=== PATIENT | female | born 1975 | race Hispanic/Latino ===

== ENCOUNTER 2018-06-01 09:28 | Outpatient (CLI) | payer OTHER ==
--- NOTE | 2018-06-01 11:59 | ULT ---
ABDOMINAL ULTRASOUND: HISTORY: Abdominal pain. COMPARISON: None. TECHNIQUE: Utilizing a Multi-Hertz transducer, sonographic imaging of the abdomen is performed in the longitudin al and transverse plane. FINDINGS: The head of the pancreas has a normal echotexture. The the pancreas is obscured by bowel gas . The visualized IVC and aorta are unremarkable. Increased echogenic liver may be due to hepatic steatosis or hepatocellular disease. Subsequent eval uation of hepatic masses and intrahepatic biliary dilatation is limited. The contour of the hepatic margin is maintained. The right hepatic lobe measures 14.8 cm. The main portal vein is patent. Appropriate directional flow. Limited evaluation of the common bile duct. common bile duct is 0.2 cm in diameter. There is sonographic evidence of cholelithiasis without evidence of gallbladder wall thickening or pe richolecystic fluid. Negative Albert sign. The kidneys have normal cortical echotexture. No hydronephrosis. The right kidney measures 4.7 x 5. 1 x 11.1 cm. The left kidney measures 12.2 x 6.1 x 5 cm. The spleen has a normal echotexture, measu ring 11.1 cm. IMPRESSION: 1. Sonographic evidence of cholelithiasis without evidence of cholecystitis. 2. Increased echogenicity of the liver, which may be due to hepatic steatosis or hepatocellular dise ase. POS: ORTEGA
== END 2018-06-01 09:29 | disposition home or self-care (01) ==
LOC: ULT 09:28
PROVIDERS: ATTEND Family Medicine
DX: R10.9 Unspecified abdominal pain (principal); K80.20 Calculus of gallbladder without cholecystitis without obstruction; R93.2 Abnormal findings on diagnostic imaging of liver and biliary tract
CPT/HCPCS: 76700

== ENCOUNTER 2019-04-04 04:23 | Observation (INO) | payer SELFPAY ==
[2019-04-04 04:56] LABS: #Eosinphils 0.1 thou/uL (0.0-0.7); #Lymphocytes 1.2 thou/uL (1.20-3.40); #Monocytes 0.3 thou/uL (0.11-0.59); #Neutrophils 3.9 thou/uL (1.40-6.50); %Basophils 0.4 % (0.0-1.0); %Eosinophils 2.3 % (0.0-10.0); %Lymphocytes 21.5 % (21.0-51.0); %Monocytes 5.9 % (0.0-10.0); %Neutrophils 69.8 % (42.0-75.0); Hemoglobin 14.2 g/dL (12.0-16.0); Mean Corpuscular HGB CONC 34.9 g/dL (32.0-36.0); Mean Corpuscular Hemoglobin 31.6 pg (27.0-31.0); Mean Corpuscular Volume 90.4 fL (78.0-98.0); Platelet Count 241 thou/uL (130-400); RBC Distribution Width 11.8 % (11.5-14.5); White Blood Cell (WBC) Count 5.6 thou/uL (4.8-10.8)
[2019-04-04 05:11] LABS: BHCG - Serum Negative (NEGATIVE); Pregs Control Background? CLEAR/WHITE (CLR/WHITE); Pregs Control Bar Appear? YES (CONTROL BAR)
[2019-04-04 05:15] LABS: ALT (SGPT) 752 U/L (8-55); AST (SGOT) 957 U/L (5-34); Albumin 4.4 g/dL (3.5-5.0); Alkaline Phosphatase 187 U/L (40-150); Anion Gap 11 mmol/L (10-20); BUN (Urea Nitrogen) 9 mg/dL (7.0-18.7); Bilirubin, Total 1.9 mg/dL (0.2-1.2); Calc. Creatinine Clearance 0 mL/min (70-130); Calcium 9.8 mg/dL (7.8-10.44); Carbon Dioxide 29 mmol/L (22-29); Chloride 101 mmol/L (98-107); Estimated GFR-MDRD Greater than 90; Globulin 3.5 g/dL (2.4-3.5); Glucose 118 mg/dL (70-105); Lipase 26 U/L (8-78); Protein, Total 7.9 g/dL (6.0-8.3); Sodium 137 mmol/L (136-145)
[2019-04-04] MEDS ORDERED: Piperacillin/Tazobactam 4.5 GM VIAL ONE (05:39)
[2019-04-04] MEDS ORDERED: Ondansetron PF 4 MG/2 ML Vial ONE ×2 (05:39→11:26)
[2019-04-04] MEDS ORDERED: Morphine 4 MG/ML VIAL ONE (05:39)
[2019-04-04 05:55] LABS: Bilirubin Negative (Negative); Blood, Urine Negative (Negative); Clarity Clear (Clear); Glucose, Urine (Dipstick) Normal (Negative); Leukocyte Negative Leu/uL (Negative); Nitrite Negative (Negative); Protein, Urine (Dipstick) Negative (Neg-Trace); Urobilinogen Normal mg/dL (Less than 2)
[2019-04-04] MEDS ORDERED: hydrALAZINE 20 MG/ML VIAL SLOW IVP PRN (07:29)
[2019-04-04] MEDS ORDERED: Ondansetron PF 4 MG/2 ML Vial IVP PRN (07:29)
[2019-04-04] MEDS ORDERED: Morphine 4 MG/ML VIAL SLOW IVP PRN (07:29)
[2019-04-04] MEDS ORDERED: Morphine 2 MG/ML SYRINGE SLOW IVP PRN (07:29)
[2019-04-04] MEDS ORDERED: Acetaminophen 1,000 MG in Premix Bag 1 BAG IVPB PRN (07:32)
--- NOTE | 2019-04-04 08:25 | HP ---
HISTORY OF PRESENT ILLNESS: Marian Pitts, 43-year-old female, [place], works at [email or web address], 3, para 3, has been having biliary symptoms for the past year. This has consisted of epigastric right upper quadrant pain, back and radiation nausea. This event was especially severe and she presents to the emergency room. She is noted to have a bilirubin of 1.9, AST and ALT 957 and 752 respectively, alkaline phosphatase 187, lipase 26. test negative. CBC and basic met are essentially normal with a white count of 5.6, hemoglobin of 14. IMAGING: Ultrasound of the gallbladder reveals a 4 mm bile duct. She is tender on an exam, but feels somewhat better since admission. She has received Zosyn and saline. ALLERGIES: NONE. TOBACCO: None. ALCOHOL: Socially. MEDICATIONS: She takes gout medications as needed. PAST SURGICAL HISTORY: Noncontributory. PAST MEDICAL HISTORY: Noncontributory. PHYSICAL EXAMINATION: VITAL SIGNS: Heart rate 60, blood pressure 120/69, respiratory rate 18. HEAD, EARS, EYES, NOSE AND THROAT: Unremarkable. Sclerae nonicteric. LUNGS: Clear to auscultation. CARDIAC: Regular rate and rhythm. No murmur or gallop. ABDOMEN: Soft. Mild tenderness in right upper quadrant with mild guarding. No peritoneal signs. Remainder of the abdomen is soft. SKIN: Nonjaundiced. NEUROLOGICAL: Intact no focal deficit. EXTREMITIES: Without edema. Good palpable pulses in all extremities. LABORATORY DATA: As noted above. Ultrasound results as noted above. ASSESSMENT: Cholecystitis, cholelithiasis. We would recommend laparoscopic video cholecystectomy and cholangiograms. It is unlikely that she has choledocholithiasis with a 4 mm bile duct, and more likely her bilirubin elevation is due to cholecystitis. PLAN: Continue intravenous antibiotics. Plan laparoscopic cholecystectomy today, if the OR schedule permits. Discharge home postoperatively, pending operative findings and cholangiogram results. Risks of infection, bleeding, visceral and biliary injury explained, she consents. Risks of blood transfusions were discussed, questions. Job ID: [id number]
[2019-04-04 09:30] VITALS: BMI 27.3
--- NOTE | 2019-04-04 09:38 | ULT ---
RIGHT UPPER QUADRANT ULTRASOUND: Date: 04/04/19 HISTORY: Epigastric abdominal pain and right upper quadrant abdominal pain for 3 days with nausea and constipa tion. FINDINGS: Overlying bowel gas limits evaluation of the pancreas. There is fatty infiltration of the liver. There are multiple intraluminal gallstones. There is mild g allbladder wall thickening measuring 3.8 mm. There is positive sonographic Albert's sign. Common bile duct measures 4 mm. The right kidney measures 11.9 x 4.2 x 4.5 cm. No focal renal lesion or hydronephrosis evident. IMPRESSION: 1. Cholelithiasis, gallbladder wall thickening, and positive sonographic Albert's sign is suspicious sonographically for acute calculus cholecystitis. 2. Fatty liver. POS: BH
[2019-04-04] MEDS ORDERED: Scopolamine 1.5 mg/72 hour Patch TD SCH (10:00)
[2019-04-04] MEDS ORDERED: Ketorolac Tromethamine 30 MG/ML VIAL IVP SCH (10:15)
[2019-04-04] MEDS ORDERED: Acetaminophen 1,000 MG in Premix Bag 1 BAG IVPB SCH (10:15)
[2019-04-04] MEDS: Piperacillin/Tazobactam 3.375 GM in Sodium Chloride 0.9% 100 ML IVPB SCH ×3 (11:17→23:42)
[2019-04-04] MEDS: Sodium Chloride 0.9% 1,000 ML IV SCH ×2 (11:22→17:13)
[2019-04-04] MEDS ORDERED: Glycopyrrolate 0.2 MG/ML 5 ML SYRINGE ONE (11:26)
[2019-04-04] MEDS ORDERED: PROPOFOL 200 MG/20 ML VIAL ONE (11:26)
[2019-04-04] MEDS ORDERED: Lidocaine 1% PF 5 ML VIAL ONE (11:26)
[2019-04-04] MEDS ORDERED: Rocuronium Bromide 10 MG/ML (10ML VIAL) ONE (11:26)
[2019-04-04] MEDS ORDERED: Succinylcholine Chloride 20 MG/ML 10 ml SYRINGE FS ONE (11:26)
[2019-04-04] MEDS ORDERED: Scopolamine 1.5 mg/72 hour Patch ONE (12:44)
[2019-04-04] MEDS ORDERED: Iothalamate Meglumine 60% 50 ML VIAL FS ONE (13:59)
[2019-04-04] MEDS ORDERED: Bupivacaine HCl 0.5%/Epinephrine 1:200,000/PF 30 ml Vial ONE (13:59)
[2019-04-04] MEDS ORDERED: Fentanyl 100 MCG/2 ML VIAL ONE ×3 (14:03→15:46)
[2019-04-04] MEDS ORDERED: SUGAMMADEX SODIUM 200 MG/2 ML VIAL ONE (15:19)
[2019-04-04] MEDS ORDERED: Promethazine HCl 25 MG/ML VIAL IM PRN (15:29)
[2019-04-04] MEDS ORDERED: Ondansetron HCl/PF 4 MG/2 ML Vial IVP PRN (15:29)
[2019-04-04] MEDS ORDERED: Promethazine HCl 25 MG/ML VIAL SLOW IVP PRN (15:29)
[2019-04-04] MEDS ORDERED: traMADol HCl 50 MG TAB PO PRN ×2 (16:08)
[2019-04-04] MEDS: Acetaminophen 1,000 MG in Premix Bag 1 BAG IVPB SCH ×2 (17:14→20:49)
[2019-04-04] MEDS: Ketorolac Tromethamine 30 MG/ML VIAL IVP SCH ×2 (17:14→20:49)
[2019-04-04] MEDS: Enoxaparin Sodium 40 MG/0.4 ML SYRINGE SC SCH (20:48)
[2019-04-04] MEDS ORDERED: Enoxaparin Sodium 40 MG/0.4 ML SYRINGE SC SCH (21:00)
--- NOTE | 2019-04-04 21:31 | OP ---
DATE OF PROCEDURE: 04/04/2019 PREOPERATIVE DIAGNOSES: Chronic cholecystitis and cholelithiasis, elevated bilirubin and bile duct 4 mm. POSTOPERATIVE DIAGNOSES: Chronic cholecystitis and cholelithiasis, acute cholecystitis, choledocholithiasis. PROCEDURES PERFORMED: Laparoscopic video cholecystectomy, positive intraoperative cholangiograms and fluoroscopy used. ANESTHESIA: General, local 0.5% Marcaine with epinephrine 30 mL. DESCRIPTION OF PROCEDURE: The patient was taken to the operating room, where under general anesthesia, abdomen was prepared with ChloraPrep and draped in routine fashion. Local anesthetic was infiltrated in the skin and subcutaneous tissue about each port site. Infraumbilical incision was made. Pneumoperitoneum to 15 mmHg was obtained with a Veress needle, replaced with a 5 port, video laparoscope was inserted. Right subxiphoid incision was made and 11 port placed. Right subcostal incision was made at midclavicular entrance line, the 5 port was placed. Fundus of the gallbladder was grasped at cephalad. Infundibulum was grasped laterally. Liver appeared to be normal. Cystic artery and duct dissected free. Critical view was obtained. Cystic artery and duct were doubly clipped proximally, singly clipped distally and divided. The cystic duct singly clipped on the gallbladder side. Opening was made in the cystic duct. Cholangiogram was obtained using fluoroscopy after administration of glucagon intravenously by Anesthesia. Cholangiocatheter was inserted, and cholangiogram was obtained revealing filling of the common bile, common hepatic, and left and right hepatic ducts without emptying into the duodenum. The patient had been given glucagon. Repeat cholangiograms were obtained with more contrast, again it would not empty. Cholangiocatheter was removed. Cystic duct was doubly clipped and divided. Gallbladder was dissected free from liver bed obtaining good hemostasis prior to division of the final peritoneal attachments. Gallbladder, contents, and stones removed and submitted to Pathology. Good hemostasis ensured with the cautery. Irrigant and pneumoperitoneum evacuated. All instruments were removed, all skin incisions were approximated with subdermal 4-0 Monocryl and Sigourney glue applied. I did call Dr. Peralta as I had talked to the patient and her regarding possibility of a future ERCP at 3 o'clock in the afternoon. There are no endoscopic techs available to do an ERCP. Thus, her ERCP will be done tomorrow. Job ID: [id number]
--- NOTE | 2019-04-05 02:16 | CON ---
DATE OF CONSULTATION: REASON FOR CONSULT: Possible choledocholithiasis. HISTORY OF PRESENT ILLNESS: Marian Pitts is a 43-year-old female who for about a year has been having biliary colic. She presented to the hospital last night where an ultrasound showed gallstones and gallbladder wall thickening suggestive of acute cholecystitis. The common bile duct was measured at 4 mm. The patient's liver function tests were noted to be elevated with a bilirubin of 1.9, AST and ALT of 957 and 752 with alkaline phosphatase of 187. Lipase was normal. test was negative. Renal function was normal and CBC was normal. She underwent a lap choly today with Dr. Epperson. In that study, he informed me showed a nondraining common bile duct concerning for choledocholithiasis. The report is not done on that yet. The patient has been here for ERCP tomorrow. The patient is feeling better for lap ana. She has some tenderness at her incision site. She has had no fever. She is about to get up and walk. She has had no nausea or vomiting. She is tolerating p.o. PAST MEDICAL HISTORY: None. PAST SURGICAL HISTORY: Lap ana today. SOCIAL HISTORY: Alcohol socially, but not much. Tobacco, none. ALLERGIES: NONE. MEDICATIONS: She takes some gout medicine at home p.r.n. Presently, she has, 1. Tylenol ordered. 2. Lovenox ordered. 3. Fentanyl p.r.n. 4. Toradol p.r.n. 5. Levofloxacin 750 mg q.24 hours. 6. Morphine p.r.n. 7. Zofran p.r.n. 8. Zosyn. REVIEW OF SYSTEMS: Negative for shortness of breath, dyspnea on exertion. Negative for nausea, vomiting, dysphagia, odynophagia, or melena. PHYSICAL EXAMINATION: VITAL SIGNS: Temperature is 98, pulse 64, blood pressure 110/62. LUNGS: Clear. HEART: Regular rate and rhythm without clicks or murmurs. ABDOMEN: Soft and nontender. Trocar sites are slightly tender, but there is no bruising or edema. LABORATORY DATA: Labs as per HPI. Ultrasound as per HPI. ASSESSMENT: 1. Cholelithiasis with acute cholecystitis, status post lap ana. 2. Positive intraoperative cholangiogram for non-drainage of biliary tree, concerning for possible choledocholithiasis. PLAN: 1. Repeat labs in the morning. 2. Plan for ERCP tomorrow. 3. Risks, benefits, and possible complications, including perforation, reaction to medication, aspiration, pancreatitis, all discussed with the patient. She wished to proceed. Drawing of the anatomy and indications of the procedure were discussed with her as well. Job ID: [id number]
[2019-04-05] MEDS: Acetaminophen 1,000 MG in Premix Bag 1 BAG IVPB SCH (03:34)
[2019-04-05] MEDS: Ketorolac Tromethamine 30 MG/ML VIAL IVP SCH ×4 (03:34→21:39)
[2019-04-05] MEDS: Sodium Chloride 0.9% 1,000 ML IV SCH ×3 (03:39→18:22)
[2019-04-05 05:17] LABS: #Lymphocytes 0.6 thou/uL (1.20-3.40); #Monocytes 0.3 thou/uL (0.11-0.59); #Neutrophils 8.5 thou/uL (1.40-6.50); %Eosinophils 0.1 % (0.0-10.0); %Lymphocytes 6.8 % (21.0-51.0); %Monocytes 3.1 % (0.0-10.0); %Neutrophils 90.1 % (42.0-75.0); Hemoglobin 13.2 g/dL (12.0-16.0); Mean Corpuscular HGB CONC 34.9 g/dL (32.0-36.0); Mean Corpuscular Hemoglobin 31.8 pg (27.0-31.0); Mean Platelet Volume 8.9 fL (7.4-10.4); Platelet Count 248 thou/uL (130-400); RBC Distribution Width 11.7 % (11.5-14.5); Red Blood Cell (RBC) Count 4.14 mill/uL (4.20-5.40); White Blood Cell (WBC) Count 9.4 thou/uL (4.8-10.8)
[2019-04-05 05:26] LABS: Prothrombin Time 13.3 SEC (12.0-14.7)
[2019-04-05 05:37] LABS: ALT (SGPT) 1197 U/L (8-55); AST (SGOT) 1045 U/L (5-34); Alkaline Phosphatase 219 U/L (40-150); Anion Gap 12 mmol/L (10-20); BUN (Urea Nitrogen) 7 mg/dL (7.0-18.7); Bilirubin, Total 2.5 mg/dL (0.2-1.2); Calc. Creatinine Clearance 143 mL/min (70-130); Calcium 9.2 mg/dL (7.8-10.44); Carbon Dioxide 24 mmol/L (22-29); Chloride 102 mmol/L (98-107); Estimated GFR-MDRD Greater than 90; Globulin 3.2 g/dL (2.4-3.5); Glucose 118 mg/dL (70-105); Lipase 17 U/L (8-78); Potassium 3.9 mmol/L (3.5-5.1); Protein, Total 7.2 g/dL (6.0-8.3); Sodium 134 mmol/L (136-145)
[2019-04-05] MEDS: Piperacillin/Tazobactam 3.375 GM in Sodium Chloride 0.9% 100 ML IVPB SCH ×3 (05:50→18:36)
[2019-04-05] MEDS: Polyethylene Glycol 3350 17 GM Packet PO SCH (07:22)
[2019-04-05] MEDS ORDERED: Fentanyl 100 MCG/2 ML VIAL ONE (12:31)
[2019-04-05] MEDS ORDERED: Indomethacin 50 MG SUPP ONE (13:13)
[2019-04-05] MEDS ORDERED: Iothalamate Meglumine 60% 50 ML VIAL FS ONE (13:13)
[2019-04-05] MEDS ORDERED: Rocuronium Bromide 10 MG/ML (10ML VIAL) ONE (13:47)
[2019-04-05] MEDS ORDERED: PROPOFOL 200 MG/20 ML VIAL ONE (13:47)
[2019-04-05] MEDS ORDERED: Lidocaine 1% PF 5 ML VIAL ONE (13:47)
[2019-04-05] MEDS ORDERED: Succinylcholine Chloride 20 MG/ML 10 ml SYRINGE FS ONE (13:47)
[2019-04-05] MEDS ORDERED: Glycopyrrolate 0.2 MG/ML 5 ML SYRINGE ONE (13:47)
[2019-04-05] MEDS ORDERED: Promethazine HCl 25 MG/ML VIAL SLOW IVP PRN (14:34)
[2019-04-05] MEDS ORDERED: Promethazine HCl 25 MG/ML VIAL IM PRN (14:34)
[2019-04-05] MEDS ORDERED: Ondansetron HCl/PF 4 MG/2 ML Vial IVP PRN (14:34)
--- NOTE | 2019-04-05 15:26 | OP ---
DATE OF PROCEDURE: 04/05/2019 PREPROCEDURE DIAGNOSES: 1. Nondraining intraoperative cholangiogram at the time of laparoscopic cholecystectomy for acute cholecystitis. 2. Increasing LFTs. POSTPROCEDURE DIAGNOSIS: Choledocholithiasis, resolved. PROCEDURES PERFORMED: 1. Endoscopic retrograde cholangiopancreatography with sphincterotomy. 2. Endoscopic retrograde cholangiopancreatography with removal of common bile duct stone. RECOMMENDATIONS: Repeat liver function test tomorrow. Advance diet slowly. If no signs of pancreatitis or postprocedure complications, can go home tomorrow morning on the . ANESTHESIA: General endotracheal anesthesia. The patient is already on antibiotics. No further antibiotics were given as prophylaxis. She did get 100 mg of Indocin as suppository for post ERCP pancreatitis prophylaxis. DESCRIPTION OF PROCEDURE: After the patient and were informed risks, benefits, and possible complications of endoscopy including perforation, bleeding, reaction to medication, aspiration, and pancreatitis, and informed consent was obtained. I talked with the patient yesterday and the at the bedside today before the procedure. The patient was brought to the endoscopy suite, where she was sedated in gradual fashion. She was intubated and placed in the fluoroscopy suite table in a prone position positioning by anesthesia care provider. Once the patient was in good position, a group sales representative film was obtained showing surgical clips in right upper quadrant consistent with previous cholecystectomy. A side-viewing duodenum scope was carefully advanced through the bite block into the esophagus, stomach, and second and third portions of the duodenum. The ampulla was brought into view. The ampulla appeared normal. There was clear bile emanating from it. Cannulation was obtained first with just a guidewire and first we cannulated the pancreatic duct. We could not get into the common bile duct with repeated attempts to redirect. Therefore, a wire was left in the pancreatic duct and the papillotome was removed from the wire and then advanced back through the scope next to the wire, trying to do a double wire cannulation. This was not successful and the wire was removed from the pancreatic duct. Ultimately free cannulation of the common bile duct was performed and a wire was advanced up into the biliary tree. Cholangiogram revealed filling defect in distal duct. A sphincterotomy was performed over the guidewire with good hemostasis. The duct was estimated to be 15 mm in size. A 12-15 mm balloon was advanced into the common hepatic duct and an occlusion cholangiogram was performed, while pulling this balloon through a large distal bile duct. The occlusion cholangiogram was otherwise negative. The duct was swept two more times with no residual stones encountered. There were no further filling defects. There was spontaneous drainage of contrast both endoscopically and radiographically at the termination of procedure. There was good hemostasis at the sphincterotomy site. The stomach was desufflated. The scope was removed. The patient tolerated the procedure well with no complications. Job ID: [id number]
--- NOTE | 2019-04-05 15:44 | RAD ---
ERCP: DATE: 04/05/19 A total of 9 fluoroscopic images presented from an ERCP procedure. INDICATION: Imaging during ERCP procedure with fluoroscopy. FINDINGS/IMPRESSION: These images show opacification of the common duct. There appears to be filling defect in the distal common duct which could represent stones or debris. POS: ORTEGA
[2019-04-05] MEDS: Enoxaparin Sodium 40 MG/0.4 ML SYRINGE SC SCH (19:57)
[2019-04-05] MEDS: traMADol HCl 50 MG TAB PO PRN (20:15)
--- NOTE | 2019-04-05 22:55 | RAD ---
Intraoperative fluoroscopy cholangiogram HISTORY: Cholecystitis. FINDINGS: Intraoperative fluoroscopy was provided for cholangiogram procedure and by Dr. Epperson. Spot image shows contrast opacification of a nondilated biliary system. Faint contrast within the duodenum. Fluoroscopy time 29 seconds.
--- NOTE | 2019-04-06 01:13 | HP ---
Ms. Pitts underwent ERCP with Dr. Peralta today. He extracted stone. She is feeling fairly well with expected postoperative pain. She has not had any nausea or vomiting. She is tolerating her full liquids, status post ERCP. Her lungs clear to auscultation. Cardiac rhythm without murmur or gallop. Abdomen is soft. Postoperative tenderness expected. Good bowel sounds. 97.5 degrees, 64, 120/78. This morning prior to her ERCP, her white count was 9, hemoglobin 13. Basic metabolic profile normal. Bilirubin 2.5. This morning, AST and ALT 1045 and 1197, alkaline phosphatase 219. The patient is doing well. Expect her to be able to discharge home tomorrow. I would recommend that she take Tylenol and Motrin for pain, and Ultram as needed. She will follow up in my office in 2 to 3 weeks. There are no lifting restrictions. She can shower and bathe at any time. I would stop her antibiotics tomorrow. Job ID: [id number]
[2019-04-06] MEDS: Ketorolac Tromethamine 30 MG/ML VIAL IVP SCH ×3 (03:38→14:35)
[2019-04-06] MEDS: Acetaminophen 500 MG TAB PO PRN ×2 (07:33→14:35)
[2019-04-06] MEDS: traMADol HCl 50 MG TAB PO PRN (07:33)
[2019-04-06 08:07] LABS: Hemoglobin 11.7 g/dL (12.0-16.0)
[2019-04-06 08:26] LABS: ALT (SGPT) 661 U/L (8-55); AST (SGOT) 225 U/L (5-34); Albumin 3.7 g/dL (3.5-5.0); Alkaline Phosphatase 160 U/L (40-150); Bilirubin, Direct 0.3 mg/dL (0.1-0.3); Bilirubin, Total 0.7 mg/dL (0.2-1.2); Lipase 163 U/L (8-78); Protein, Total 6.5 g/dL (6.0-8.3)
--- NOTE | 2019-04-06 12:05 | PRG ---
DATE OF SERVICE: 04/06/2019 SUBJECTIVE: Presently, she states she feels well. She has some abdominal pain 5/10. This is better than her previous pain after her cholecystectomy. OBJECTIVE: VITAL SIGNS: Temperature 98, pulse 69, and blood pressure 111/75. LUNGS: Clear. ABDOMEN: Soft. There is mild epigastric tenderness. There is no rebound. There is no guarding. LABORATORY DATA: AST and ALT are 225 and 661, down from 1045 and 1197. Alkaline phosphatase 160, down from 219. Lipase was mildly elevated at 163. ASSESSMENT: 1. Status post laparoscopic cholecystectomy for symptomatic cholelithiasis. 2. Status post ERCP with choledocholithiasis, stone removed, improving liver function tests. 3. Mild elevation of lipase post ERCP. I really think she has post ERCP pancreatitis. Her pain is actually less than it was after her cholecystectomy, but I agree with Dr. Barrow from General Surgery, discussed the case with them. We are going to just watch her, get a lipase later this evening. She is doing well. She can go home after that. I expect her liver function tests return to normal with time with the stone being removed. Job ID: [id number]
[2019-04-06] MEDS: Polyethylene Glycol 3350 17 GM Packet PO SCH (14:34)
[2019-04-06] MEDS ORDERED: Sodium Chloride 0.9% 1,000 ML IV SCH (15:00)
[2019-04-06 15:38] VITALS: BP 118/80; TEMP 97.9
[2019-04-06 17:16] LABS: ALT (SGPT) 583 U/L (8-55); AST (SGOT) 163 U/L (5-34); Albumin 3.8 g/dL (3.5-5.0); Alkaline Phosphatase 151 U/L (40-150); Bilirubin, Direct 0.3 mg/dL (0.1-0.3); Bilirubin, Total 0.4 mg/dL (0.2-1.2); Protein, Total 6.8 g/dL (6.0-8.3)
--- NOTE | 2019-04-08 15:31 | DIS ---
DATE OF ADMISSION: 04/04/2019 DATE OF DISCHARGE: 04/06/2019 ADMISSION DIAGNOSES: Cholecystitis, cholelithiasis. DISCHARGE DIAGNOSES: Cholecystitis, cholelithiasis postop cholecystectomy, ERCP with removal of common bile duct stone. PROCEDURES: 1. Cholecystectomy. 2. ERCP with removal of common bile duct stone. HOSPITAL COURSE: This is a 43-year-old female, coming for evaluation of the abdominal pain. The patient was diagnosed with cholecystectomy, cholelithiasis. The patient underwent cholecystectomy and ERCP to remove common bile duct stone. Postop, the patient's lipase later today showed significant decrease, in which we decided to discharge patient as planned by Dr. Epperson. The patient is able to tolerate regular diet. Her pain is well controlled. She is able to mobilize well. DISCHARGE DISPOSITION: Home. DISCHARGE CONDITION: Satisfactory. PHYSICAL EXAMINATION: GENERAL: The patient is a 43-year-old female, well developed, alert, and oriented x3. VITAL SIGNS: Temperature 97, heart rate 70, respiratory rate 16, O2 sat 97% on room air, and blood pressure 118/80. LUNGS: Clear bilaterally. HEART: Regular rate and rhythm. ABDOMEN: Mild tender to touch expected postop pain. no rebound. Normal bowel sounds. NEUROVASCULAR: Intact x4. DISCHARGE PLAN: The patient is to take medication as directed. The patient is to continue regular activity. The patient is to follow up with Dr. Epperson in 2 to 3 weeks. MEDICATION: Tramadol 50 mg p.o. q.6 hours as needed for pain. Job ID: [id number] [id number]
[2019-04-09] MEDS ORDERED: Ibuprofen 600 MG TAB PO PRN (16:00)
== END 2019-04-06 19:05 | disposition home or self-care (01) ==
LOC: ERS 04:23 → SURG A 05:50
PROVIDERS: ADMIT Specialist; ATTEND Specialist
PROC: 0FT44ZZ Resection of Gallbladder, Percutaneous Endoscopic Approach (ICD-10-PCS; 2019-04-04)
PROC: BF121ZZ Fluoroscopy of Gallbladder using Low Osmolar Contrast (ICD-10-PCS; 2019-04-04)
PROC: 0FC98ZZ Extirpation of Matter from Common Bile Duct, Via Natural or Artificial Opening Endoscopic (ICD-10-PCS; principal; 2019-04-05)
PROC: 0F798ZZ Dilation of Common Bile Duct, Via Natural or Artificial Opening Endoscopic (ICD-10-PCS; 2019-04-05)
DX: K80.66 Calculus of gallbladder and bile duct with acute and chronic cholecystitis without obstruction (principal); M10.9 Gout, unspecified; Z79.899 Other long term (current) drug therapy
CPT/HCPCS: 36415; 47532; 74330; 76705; 80053; 80076; 81003; 83690; 84703; 85014; 85018; 85025; 85610; 88304; 93005; 96361; 96365; 96366; 96367; 96372; 96375; 96376; G0378; J0131; J0670; J1610; J1650; J1885; J1956; J2001; J2270; J2405; J2543; J2704; J3010; J3490